=== PATIENT | female | born 1985 | race African-American/Black ===

== ENCOUNTER 2018-12-12 12:59 | Emergency (ER) | payer OTHER ==
[~2018-12-12] VITALS: Ht 160 cm; Wt 68.0 kg
[2018-12-12] MEDS ORDERED: BACITRACIN ZINC OINT UDPKT TOP ONE (14:30)
[2018-12-12] MEDS ORDERED: TETANUS, DIPHTHERIA, PERTUSSIS VAC/PF 0.5ML (>7YR OLD) IM ONE (14:30)
[2018-12-12] MEDS ORDERED: LIDOCAINE HCL/PF 1% 10 MG/ML 5ML VIAL IJ ONE (14:30)
[2018-12-12 15:37] VITALS: BP 123/89
== END 2018-12-12 15:39 | disposition home or self-care (01) ==
LOC: ER 13:24
DX: S51.812A Laceration without foreign body of left forearm, initial encounter (principal); W26.0XXA Contact with knife, initial encounter; Y93.89 Activity, other specified; Y92.89 Other specified places as the place of occurrence of the external cause; Y99.8 Other external cause status
CPT/HCPCS: 12004; 90471; 90715; 99284; J3490